=== PATIENT | male | born 1945 | race Caucasian/White ===

== ENCOUNTER 2024-04-05 13:22 | Inpatient (IN) | payer OTHER, SELFPAY ==
[2024-04-05] VITALS (19 sets, daily range): BP systolic 113–170; BP diastolic 59–115
[2024-04-05 10:12] LABS: % Basophils 0.6 % (0-2); % Eosinophils 2.2 % (0-6); % Immature Granulocytes 0.3 % (0-0.5); % Lymphocytes 13.7 % (20.5-51.1); % Monocytes 8.1 % (1.7-9.3); % Neutrophils 75.1 % (42.2-75.2); Absolute Basophils 0.1 10^3/uL (0-0.2); Absolute Eosinophils 0.2 10^3/uL (0-0.7); Absolute Lymphocytes 1.3 10^3/uL (1.2-3.4); Absolute Monocytes 0.8 10^3/uL (0.1-0.6); Absolute Neutrophils 7.1 10^3/uL (1.4-6.5); Hemoglobin 13.8 g/dL (13.0-18.0); Mean Corp Hgb Conc. 33.7 g/dL (33.0-37.0); Mean Corpuscular Hgb 31.3 pg (27.0-31.0); Mean Platelet Volume 10.4 fL (7.4-10.4); Nucleated Red Blood Cells % 0 % (-); Platelet Count 249 10^3/uL (130-400); Red Blood Cell Count 4.41 10^6/uL (4.70-6.10); Red Cell Dist. Width 12.3 % (11.5-14.5); White Blood Cell Count 9.5 10^3/uL (4.8-10.8)
[2024-04-05 10:22] LABS: ALT (SGPT) 14 U/L (0-50); AST (SGOT) 26 U/L (17-59); Albumin 4.3 g/dl (3.5-5.0); Alkaline Phosphatase 61 U/L (38-126); Blood Urea Nitrogen 40 mg/dl (9-20); Calcium 9.7 mg/dl (8.4-10.2); Carbon Dioxide 25 mmol/L (22-30); Chloride 104 mmol/L (98-107); Glucose 107 mg/dl (70-99); Magnesium 1.7 mg/dl (1.6-2.3); Potassium 4.3 mmol/L (3.5-5.1); Sodium 140 mmol/L (135-145); Total Protein 7.3 g/dl (6.3-8.2); eGFR 50.81
[2024-04-05 10:36] LABS: Troponin I 0.112 ng/ml
[2024-04-05 10:53] LABS: TSH 1.08 uIU/ml (0.47-4.68)
[2024-04-05] MEDS: ASPIRIN 325 MG PO (10:56)
--- NOTE | 2024-04-05 10:59 | ED.GENMED ---
History of Present Illness
General
Chief Complaint: Chest Pain
Source: patient and spouse
Exam Limitations: none
Time Seen by Provider: 04/05/24 09:48
Nursing documentation reviewed up to this point in time: agreed with
History of Present Illness
History of Present Illness:
79-year-old male past medical history of hypertension hyperlipidemia presenting to the emergency department today with concerns of chest pain 2 days ago when lifting some objects at home has since resolved lasted for a few hours at the time had some
mild shortness of breath at this time no symptoms at this point.
Past History
Past History
ED Past Medical History: HTN and Hypercholesterolemia
ED Past Surgical History: None
Social History
Tobacco: Non-smoker
Alcohol: Occasional
Personal:
Living: with family
Employment: Employed
Review of Systems
Review of Systems
Allergies reviewed?: Yes
All Other Systems: ROS reviewed and negative except as documented in HPI and ROS
Phy Exam
Physical Exam
Physical Exam:
GENERAL: Alert , in no apparent distress
EYE: pupils equal and reactive
NECK: Supple, no significant adenopathy.
ENT: o/p clr, mmm.
CARDIAC: Regular rate and rhythm .
LUNGS: Clear breath sounds bilaterally, no acute respiratory distress, no wheezes/rales/rhonchi
ABDOMEN: Soft, without focal tenderness, no r/g, no cvat
NEUROLOGICAL: Alert and oriented, no focal neuro deficits
SKIN: Warm and dry, skin intact.
MUSCULOSKELETAL: No edema, well perfused.
PSYCH: Normal and appropriate interaction.
Scores
Heart Score for Chest Pain Patients
STEMI patient?: No
History: Moderately Suspicious
ECG: Nonspecific Repolarization
Age: >/= 65 years
Risk Factors: 1 or 2 Risk Factors
Troponin: >/= 3 x Normal Limit
Heart Score for Chest Pain Patients: 7
Heart Score Risk: 72.7 % MACE over next 6 weeks
Course
Orders/Labs/Results
Orders:
Orders
04/05/24 09:33
ECG [Electrocardiogram (*1)] Urgent
Reason for Study: Chest Pain
EKG- Treatment ONCE
04/05/24 09:55
CR Chest - 2 Views Urgent
Comment:
Reason For Exam: cp
04/05/24 09:59
Complete Blood Count/With Diff Urgent
Comprehensive Metabolic Panel Urgent
Magnesium Urgent
TSH Urgent
Troponin I Urgent
04/05/24 10:39
EKG [Electrocardiogram (*1)] Urgent
Reason for Study: Chest Pain
EKG- Treatment ONCE
04/05/24 10:53
Aspirin 325 mg PO NOW STA
04/05/24 10:59
PT/INR [Prothrombin Time] Urgent
PTT Urgent
04/05/24 11:32
Echo 2D MMode Color/Doppler Urgent
Reason for Study: NSTEMI
04/05/24 11:53
Add On- LAB Routine
Tests Added?: lipid panel and hgbA1c
04/05/24 12:[address] See Dose Instructions PO NOW STA
Discontinue all Active Warfarin orders?: Not Applicable
04/05/24 12:34
Heparin Protocol- PTT Orders As Directed
PTT per Heparin protocol: -Obtain CBC and baseline PTT - if not already collected.
-Obtain PTT 6 hours from start of infusion. Then, every 6 hours until 2 consecutive
PTT's are therapeutic. Then, PTT Daily.
-With each rate change, obtain PTT every 6 hours until 2 consecutive PTT's are
therapeutic. Then, PTT Daily.
Notify MD As Directed
Notify physician if: PTT is greater than or equal to 200.
04/05/24 12:45
Heparin 83264 Units/250 ml 25,000 units in 250 ml IV PER PROTOCOL
Weight to be used for heparin protocol in kilograms (kg):: 59.2
Protocol:: Cardiac Tx/Acute Coronary
PTT Goal Range to be used:: PTT 73 to 111 seconds
Order type:: Initial
INITIAL Infusion Dose (UNITS/KG/hr) & then follow protocol:: 12 units/kg/hr
Infusion Dose in UNITS/hr & then follow protocol (UNITS/hr):: 700
INFUSION RATE in mL/hr & then follow protocol (mL/hr):: 7
PTT less than or equal to 64 seconds:: Increase rate by 200 units/hr (+ 2 mL/hr)
PTT 64.1 to 72.9 seconds:: Increase rate by 100 units/hr (+ 1 mL/hr)
PTT 73 to 111 seconds:: Target Range. No change in rate.
PTT 111.1 to 130.9 seconds:: Decrease rate by 100 units/hr (- 1 mL/hr)
PTT 131 to 199.9 seconds:: HOLD for 1 hr. Then decrease rate by 200 units/hr (- 2 mL/hr)
PTT greater than or equal to 200 seconds:: HOLD for 2 hrs & Notify Provider. Then decrease by 200 units/hr (-
2 mL/hr)
Lab follow-up:: Each change, PTT q6h until 2 consecutive are therapeutic. Then PTT
daily.
04/05/24 12:46
Troponin I Urgent
04/05/24 13:[address] See Dose Instructions IV DIRECTED
04/05/24 14:00
Troponin I Urgent
04/07/24 06:00
Complete Blood Count/No Diff Q2D
Comment: Notify MD if platelet count is <130,000 or decreases by 50% from baseline
04/09/24 06:00
Complete Blood Count/No Diff Q2D
Comment: Notify MD if platelet count is <130,000 or decreases by 50% from baseline
04/11/24 06:00
Complete Blood Count/No Diff Q2D
Comment: Notify MD if platelet count is <130,000 or decreases by 50% from baseline
04/13/24 06:00
Complete Blood Count/No Diff Q2D
Comment: Notify MD if platelet count is <130,000 or decreases by 50% from baseline
04/15/24 06:00
Complete Blood Count/No Diff Q2D
Comment: Notify MD if platelet count is <130,000 or decreases by 50% from baseline
04/17/24 06:00
Complete Blood Count/No Diff Q2D
Comment: Notify MD if platelet count is <130,000 or decreases by 50% from baseline
04/19/24 06:00
Complete Blood Count/No Diff Q2D
Comment: Notify MD if platelet count is <130,000 or decreases by 50% from baseline
04/21/24 06:00
Complete Blood Count/No Diff Q2D
Comment: Notify MD if platelet count is <130,000 or decreases by 50% from baseline
Abnormal Lab Results
04/05/24
09:59
RBC 4.41 L 10^6/uL
(4.70-6.10)
MCH 31.3 H pg
(27.0-31.0)
Absolute Neuts (auto) 7.1 H 10^3/uL
(1.4-6.5)
Absolute Monos (auto) 0.8 H 10^3/uL
(0.1-0.6)
Lymphocytes % 13.7 L %
(20.5-51.1)
BUN 40 H mg/dl
(9-20)
Creatinine 1.4 H mg/dL
(0.7-1.3)
Glucose 107 H mg/dl
(70-99)
Total Bilirubin 2.0 H mg/dl
(0.2-1.3)
Troponin I 0.112 H* ng/ml
04/05/24 09:59
04/05/24 09:59
Vital Signs
Initial and Last Documented VS:
Initial Vital Signs
Temp Pulse Resp BP Pulse Ox
98.0 F 36 16 164/81 98
04/05/24 09:41 04/05/24 09:41 04/05/24 09:41 04/05/24 09:41 04/05/24 09:41
Last Documented Vital Signs
Temp Pulse Resp BP Pulse Ox
98.0 F 62 16 123/59 98
04/05/24 09:41 04/05/24 12:00 04/05/24 12:00 04/05/24 12:00 04/05/24 12:00
MDM/Problems Addressed
MDM/Problems Addressed:
79-year-old male presenting to the emergency department today with concerns of chest pain a few days ago has since resolved spoke with his primary care doctor told him to come to the ER for assessment. Upon arrival blood pressure slightly elevated
otherwise initial pulse rate 36 but rechecked in the 60s. Initial EKG showed frequent PVCs and occasional consecutive PVCs no more than 2 in a row. Labs showing elevated creatinine and BUN level but no old levels for comparison troponin level
elevated at 0.112. Patient was given an aspirin cardiology was notified. Echo was ordered patient will be taken for cath admitted in stable condition
*Critical Care Note
Total Time (30-74mins, 75-104mins- exclusive of procedures): Not Applicable
ED Attending Note
-
Portions of this chart may have been created with voice recognition software.� Occasional wrong word or��sound alike� substitutions may have occurred due to the inherent limitations of voice recognition software.
Discharge Plan
Departure
Patient Disposition: Admit
Date of Disposition: 04/05/24
Time of Disposition: 12:58
Admit to: Telemetry
Admit to doctor: Reannay
Presentation/result/management discussed w/ accepting MD/DO: Hospitalist
Patient with high blood pressure during this ER visit?: No
Condition: Good
Covid-19: Not Applicable
Discharge Problem:
Elevated troponin, Frequent PVCs, Chest pain
Prescriptions:
No Action
lisinopril 10 mg Tablet
10 mg PO DAILY
simvastatin [Zocor] 20 mg Tablet
20 mg PO DAILY
ibuprofen [Advil] 200 mg Tablet
200 mg PO BIDPRN PRN (Reason: mild pain)
hydrochlorothiazide 25 mg Tablet
25 mg PO DAILY
atenolol 50 mg Tablet
50 mg PO DAILY
Referrals:
Chris Clifton CRNP [Family Provider] -
Interventions
Interventions:
*Risk Screen - Suicide Last Done: 04/05/24 09:41
*General Assessment Last Done: 04/05/24 09:52
*Neglect/Abuse Screening Last Done: 04/05/24 09:41
ED- Fall Risk Assessment Last Done: 04/05/24 09:53
*ED COVID-19 Vaccine History Last Done: 04/05/24 09:52
ED- Cardiac Assessment Last Done: 04/05/24 09:53
Discharge Date and Time
Print Language: VIETNAMESE
[2024-04-05 11:21] LABS: APTT 26.7 Sec (23.4-35.0); INR 1.04; PT 13.9 Sec (11.4-14.6)
--- NOTE | 2024-04-05 11:27 | CON.CAR ---
Addendum entered and electronically signed by Austen St MD 04/05/24 14:56:
Attending addendum: Patient seen and examined. PA note reviewed and findings independently confirmed by me. 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
standpoint for many years. He has a history of hypertension, hyperlipidemia and CKD Stage 3a. He presented to [facility] for evaluation of new onset chest discomfort and troponin was noted to be elevated. He is now referred for coronary
angiography.
PE:
GEN: AAO x 3.��No acute distress
HEENT:��NC/AT, sclera are anicteric
NECK: Supple.��Normal JVP
LUNGS: Clear in anterior and lateral lung osborn.��No wheezing
CV: Regular rate and rhythm.��Normal S1/S2.��No S3, No S4.��Murmur: None
ABD : Soft, NT, ND, No HSM.��Bowel sounds are present.
EXT: No CCE
NEURO: No focal neurologic deficits��
RECOMMENDATIONS:
-Discussed risk and benefit of coronary angiography and explained procedure to patient
-Further management decisions will be made based on angiographic finding
-High intensisty statin therapy
-Aspirin +/- Brilinta or Plavix
Original Note:
Consultation
Consultation Request
Date/Time Consultation Performed: 04/05/24
Requesting Provider: Dr. Wick
Performing Provider: Ingris Blue PA-C for Dr. St
Reason for Consultation: CP
Medical History
-
Chief Complaint: CP
History of Present Illness:
Patient is a 79-year-old male with past medical history of hypertension, hyperlipidemia, impaired fasting glucose, stage IIIa kidney disease, ulcerative rectosigmoiditis who presented to [facility] with intermittent chest discomfort over
the last several days. He reports the pain feels as a pressure in the center of his chest which waxes and wanes. He reports no clear correlation with exertion, eating, stating the pain is random. He reports approximately 6 episodes over the last
3 days. He reports the pain is up to his neck at times. He denies associated nausea or vomiting or lightheadedness. He reports he initially noted pain after lifting a large trash bag filled with paper. 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
[place]. Currently pain-free. Given aspirin in ER. Initial troponin 0.112.
PMH:
Hypertension
Hyperlipidemia
Impaired fasting glucose
Stage IIIa kidney disease
Ulcerative rectosigmoiditis
Glaucoma status post laser treatment
Family history of CAD
Past Medical History
Past Medical History: Other (in HPI)
Social History
Tobacco: Non-Smoker
Alcohol: Other (rare)
Personal:
Living: With Family
Employment: Employed
Family History
Family History: CAD
Allergies / Home Medications
Allergy/AdvReac Type Severity Reaction Status Date / Time
No Known Allergies Allergy Verified 04/05/24 09:43
�Medication �Instructions �Recorded �Confirmed �Type
atenolol 50 mg tablet 50 mg PO DAILY 04/05/24 04/05/24 History
hydrochlorothiazide 25 mg tablet 25 mg PO DAILY 04/05/24 04/05/24 History
ibuprofen 200 mg tablet (Advil) 200 mg PO BIDPRN PRN mild pain 04/05/24 04/05/24 History
lisinopril 10 mg tablet 10 mg PO DAILY 04/05/24 04/05/24 History
simvastatin 20 mg tablet (Zocor) 20 mg PO DAILY 04/05/24 04/05/24 History
Review of Systems
-
History Source: Patient and Family
All other systems: Negative unless noted
Physical Exam
Vital Signs
Temp Pulse Resp BP Pulse Ox
98.0 F 67 16 164/81 98
04/05/24 09:41 04/05/24 09:51 04/05/24 09:53 04/05/24 09:41 04/05/24 09:41
Lab Results
04/05/24 09:59
04/05/24 09:59
Troponin I 0.112 ng/ml H* 04/05/24 09:59
Physical Exam
General: No Apparent Distress and Comfortable
HEENT: Normocephalic, Anicteric and Moist Mucous Membranes
Respiratory: Clear and Non Labored Respirations
Cardiac: S1/S2 and Regular Rhythm (with ectopy)
GI: Soft, Non Tender, Non Distended and Normal Bowel Sounds
Musculoskeletal: No Clubbing, No Cyanosis and No Edema
Skin: Warm and Dry
Neuro: AO x 3
Impression / Plan
-
Primary Dried Fruit Washer: none
PCP: Dr. Weaver
Assessment:
Presentation with chest pain
Suspected NSTEMI, initial trop 0.112
Frequent PVCs/couplets
Hypertension
Hyperlipidemia
Impaired fasting glucose
Stage IIIa kidney disease
Ulcerative rectosigmoiditis
Glaucoma status post laser treatment
Family history of CAD
ECHO 04/2015: EF 50%, mild MR, mild to moderate eccentric AR, mild TR, PAP 20 to 25 mmHg
ECHO 04/05/24: pending
Plan:
-Patient presents with chest pain, waxing and waning over the last several days
-Initial troponin 0.112. Trend to peak
-EKG sinus rhythm with frequent PVCs/couplets and possible anterior ischemia
-Chest x-ray negative for acute cardiopulmonary abnormality
-Presently chest pain-free
-Aspirin given in the ER
-Check echo
-Check CVE, hemoglobin A1c
-Last ate around 3 AM. N.p.o. for cardiac catheterization today. Procedure discussed with patient and at bedside and they are agreeable to proceed
-On regimen of atenolol 50 mg p.o. daily, HCTZ 25 mg daily, lisinopril 10 mg daily, Zocor 20 mg daily as outpatient
-Creatinine stable at baseline of 1.4 upon review of records
-Further recommendations based on results of echo and cardiac catheterization
Data Reviewed
-
EKG: Tracing Personally Visualized and interpreted
Radiology: Report Reviewed by me
Medical Tests (Nuc Med, Echo etc): Report Reviewed by me
Labs: Labs Reviewed by me
Old Records: Reviewed
--- NOTE | 2024-04-05 12:48 | HPS.HSE ---
Family Physician
-
Family Physician: JOHNNIE Bryant
Chief Complaint
-
mid chest pressure
History of Present Illness
79-year-old male with past medical history of hypertension, hyperlipidemia, impaired fasting glucose, stage IIIa kidney disease, ulcerative rectosigmoiditis who presented to [facility] with intermittent mid sternum chest pressure for past
one weeks. He reports the pain feels as a pressure in the center of his chest which waxes and wanes. patient stated it is non exertional, non radiating pain. denied sob. denied SAL, dizzy or syncopal episode. denied abdominal pain,n,v,d. denied
dysuria or hematuria.
patient was initiated on heparin drip and gave a dose of asa in ER.
Medical History
Past Medical History
Past Medical History: Reports Other
Additional Past Medical History:
colon polyps
htn
stage 3 CKD
dyslipidemia
HTN
Past Surgical History: Reports Other
Additional Past Surgical History:
tonsillectomy
Social History
Tobacco: Non-smoker
Alcohol: Occasional
Drug: None
Personal:
Living: With Family
Family History
Family History: Not pertinent
Allergies / Home Medications
Allergies reflects when Allergies were last updated in [employer].
Home Medications with original date entered in [employer]
Allergy/Medication List:
Allergies
Allergy/AdvReac Type Severity Reaction Status Date / Time
No Known Allergies Allergy Verified 04/05/24 09:43
Home Medications
atenolol 50 mg tablet 50 mg PO DAILY 04/05/24
hydrochlorothiazide 25 mg tablet 25 mg PO DAILY 04/05/24
ibuprofen 200 mg tablet (Advil) 200 mg PO BIDPRN PRN mild pain 04/05/24
lisinopril 10 mg tablet 10 mg PO DAILY 04/05/24
simvastatin 20 mg tablet (Zocor) 20 mg PO DAILY 04/05/24
Review of Systems
-
Constitutional: Reports No Symptoms
EENT: Reports No Symptoms
Respiratory: Reports No Symptoms
Cardiac: Reports Chest Pain
Abdomen/GI: Reports No Symptoms
: Reports No Symptoms
Musculoskeletal: Reports No Symptoms
Skin: Reports No Symptoms
Neurological: Reports No Symptoms
Endocrine: Reports No Symptoms
Hematologic/Lymphatic: Reports No Symptoms
Psych: Reports No Symptoms
Physical Exam
Vital Signs
Vital Signs
Temp Pulse Resp BP Pulse Ox
98.0 F 62 16 123/59 98
04/05/24 09:41 04/05/24 12:00 04/05/24 12:00 04/05/24 12:00 04/05/24 12:00
Physical Exam
General: Well Developed, Well Nourished and No Apparent Distress
HEENT: NormoCephalic, Moist mucous membranes and Atraumatic
Respiratory: Clear
Cardiac: S1/S2 and Regular Rhythm; No Murmur or Rub
GI: Soft, Non Tender, Non Distended and Normal Bowel Sounds; No Organomegaly
Rectal: Deferred by Provider
Musculoskeletal: No Clubbing, No Cyanosis and No Edema
Skin: No Rash
Neuro: AO x 3 and Nonfocal/grossly intact
Psych: Calm
Laboratory Results
-
04/05/24 09:59
04/05/24 09:59
Laboratory Results
PT 13.9 Sec (11.4-14.6) 04/05/24 10:59
INR 1.04 04/05/24 10:59
APTT 26.7 Sec (23.4-35.0) 04/05/24 10:59
Total Bilirubin 2.0 mg/dl (0.2-1.3) H 04/05/24 09:59
AST 26 U/L (17-59) 04/05/24 09:59
ALT 14 U/L (0-50) 04/05/24 09:59
Alkaline Phosphatase 61 U/L (38-126) 04/05/24 09:59
Troponin I 0.112 ng/ml H* 04/05/24 09:59
Data Reviewed
-
Diagnostic Radiology: Report Reviewed by me
Lab Data: Labs Reviewed by me
Impression/Plan
-
#chest pain r/o NSTEMI
-Trop 0.112
-asa continued
-heparin continued
-ECHO
-for possible cath today
-cardiology consulted
-chest x ray negative for acute cardiopulmonary abnormality
-EKG with Sinus Rhythm, ST and T wave abnormality
#CKD stage 3a
-cr 1.4
-ctm
#essential htn
-atenolol,hctz,lisinopril continued with hold parameter
#HLD
-zocor continued
#DVT prophylaxis
-heparin
#CODE status
-full code
--- NOTE | 2024-04-05 13:08 | W.PN.UPDATE ---
Update Note
Progress Note Update
This note serves as an addendum to the H&P by identity management consultant LAURIE Dorothy MCLEOD
HPI
79M HX hypertension, hyperlipidemia, impaired fasting glucose, CKD3 e, ulcerative rectosigmoiditis seen at ER:
- intermittent chest discomfort
- pain feels as a pressure in the center of his chest which waxes and wanes.
- no clear correlation with exertion, eating, stating the pain is random.
- somewhat 6 episodes over the last 3 days.
- occasionally the pain is radiated up to his neck at times.
- reports he initially noted pain after lifting a large trash bag filled with paper.
Currently pain-free. Given aspirin in ER. Initial troponin 0.112.
ROS: denies associated nausea or vomiting or lightheadedness.
PHX; see above
Reviewed VS: stable
PE
Gen: NAD, not toxic, looks younger than his age
HEENT: anicteric
Neck: supple, no significant JVD
Lungs: symmetric AE, no additional BS
Cor: RRR S1 S2
Abdomen: soft benign exam
RADIO TELEVISION ANNOUNCER: AAO3, NFND
MS: no edema
Psych: nl mood and affect
Laboratory Tests
04/05/24 04/05/24 04/05/24
09:59 10:59 12:46
WBC 9.5
Hgb 13.8
Plt Count 249
INR 1.04
BUN 40 H
Creatinine 1.4 H
Glucose 107 H
Total Bilirubin 2.0 H
Troponin I 0.112 H* Pending
TSH 1.08
04/05/24
14:00
WBC
Hgb
Plt Count
INR
BUN
Creatinine
Glucose
Total Bilirubin
Troponin I Pending
TSH
CXR: No radiographic evidence of acute cardiopulmonary abnormality.
Serial EKG reports: 04/05/24
@1039:
SINUS RHYTHM WITH FREQUENT PREMATURE VENTRICULAR COMPLEXES
MINIMAL VOLTAGE CRITERIA FOR LVH, MAY BE NORMAL VARIANT ( Sokolow-Lazar )
ANTERIOR INFARCT , AGE UNDETERMINED
ST and T WAVE ABNORMALITY, CONSIDER LATERAL ISCHEMIA
ABNORMAL ECG
WHEN COMPARED WITH ECG OF 05-APR-2024 09:39,
ANTERIOR INFARCT IS NOW PRESENT
Confirmed by TAN BATES MD ([id number]) on 04/05/2024 11:06:59 AM
@0933
SINUS RHYTHM WITH FREQUENT , AND CONSECUTIVE PREMATURE VENTRICULAR COMPLEXES
IN A PATTERN OF BIGEMINY
MINIMAL VOLTAGE CRITERIA FOR LVH, MAY BE NORMAL VARIANT ( Sokolow-Lazar )
ST and T WAVE ABNORMALITY, CONSIDER ANTERIOR ISCHEMIA
ABNORMAL ECG
NO PREVIOUS ECGS AVAILABLE
Confirmed by TAN BATES MD ([id number]) on 04/05/2024 9:51:42 AM
Apr 2015 ECHO: EF 50%, mild MR, mild to moderate eccentric AR, mild TR, PAP 20 to 25 mmHg
04/05/24 ECHO pending
No prior hospitalist admission:
ASSESSMENT & PLAN
Pending Rx reconciliation
Intermittent CP - currently pain free
Elevated first TPNI with serial EKG becomes abn for Anterior ischemia
Last ate around 3 AM.
DDX: ACS, NSTEMI, less likley NMITE
- Initial troponin 0.112: Trend to peak
- Aspirin given in the ER
- Heparin gtt now
- f/u TTE for WMAL
- f/u lipds and and A1c
- NPO for cardiac catheterization today
- GRADUATE INTERN atenolol 50 mg p.o. daily, HCTZ 25 mg daily, lisinopril 10 mg daily, Zocor 20 mg daily as outpatient
- DCA card consulted
CKD3 and stable Creatinine at baseline of 1.4
- IVF NS 250 cc prior to cath
- trend Cr
DVT Px: heaprin gtt
Full code
IP TLM
[2024-04-05] MEDS: HEPARIN 25000 UNITS/250 ML IV (13:22)
[2024-04-05 13:28] LABS: HDL Cholesterol 77 mg/dl; LDL Cholesterol, Calculated 87 mg/dl; Total Cholesterol 175 mg/dl (50-199); Triglyceride 55 mg/dl (10-149); Very Low Density Lipoprotein 11 mg/dl (0-30)
[2024-04-05 14:17] LABS: Glycohemoglobin (HgbA1c) 5.3 % (4.0-5.6)
[2024-04-05 15:36] LABS: ACT-LR - POC 253 Seconds (116-155)
[2024-04-05 15:56] LABS: ACT-LR - POC 277 Seconds (116-155)
--- NOTE | 2024-04-05 15:59 | ITS.CL.CATH ---
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
Cardiac Catheterization
Procedure Report:
LEFT HEART CATH AND CORONARY INTERVENTION
Date of Procedure: April 05, 2024
Referring: Dr. Austen St
PROCEDURES:
1. Left heart catheterization with coronary and single-plane left ventriculography
2. Successful stenting of the mid LAD with a 3.0 x 22 mm [place] stent that was implanted at nominal pressures and postdilated to high pressures with a 3.0 mm noncompliant balloon
INDICATION: This is an 79-year-old gentleman who presented to [facility] following the development of substernal chest pressure that waxed and waned in nature. He thought that he pulled a muscle while working. He continues to work
part-time at [employer]. He arrived at the emergency chest pain-free and his initial troponin returned at 0.112 ng/mL. He is now referred for coronary angiography.
ACCESS: Right radial artery, 6 Egyptian sheath
HEMODYNAMICS (mmHg):
AO (s/d, m) : 145/69, 95
LV (s/d) : 126/14
LVEDP : 24
CORONARY FINDINGS
Dominance: Right
LEFT MAIN: Normal
LEFT ANTERIOR DESCENDING: The LAD arises normally from the left main and runs in the anterior interventricular groove. There is a large first diagonal branch arising from the mid LAD and has a 50% ostial stenosis but normal flow. The mid LAD
beyond the diagonal branch has a hazy 85 percent stenosis. The LAD has diffuse luminal irregularities but no other focal obstructive disease.
CIRCUMFLEX: The circumflex is a moderate caliber nondominant vessel giving rise to a small OM1 and a larger OM 2 which has a 40% stenosis in its midportion.
RIGHT CORONARY: The right coronary artery is a dominant vessel with minor irregularities over its course.
VENTRICULOGRAPHY: Left ventriculography was performed in an CHANG projection. The digital single-plane left ventricular ejection fraction is visually estimated at 50%
ANGIOPLASTY PROCEDURE DETAIL: Upon review of the diagnostic catheterization films the decision was made to proceed with percutaneous revascularization of the ulcerated high-grade stenosis in the mid LAD. A 180 mg loading dose of ticagrelor was
administered and intravenous heparin was given. The ACT was monitored throughout the procedure. The origin of the left main was cannulated with a 6 Egyptian EBU 3.5 guiding catheter and a BMW guidewire was advanced to the apical LAD. Primary
stenting was performed with placement of a 3.0 x 26 mm [place] stent. The stent was implanted at nominal pressures then postdilated to high pressures with a 3 mm noncompliant balloon with an excellent angiographic result
RADIATION SUMMARY: Fluoro Time (min): 7.5, Dose (mGy): 433, DAP (Gy.cm2) : 27.6
CONCLUSIONS
1. Successful stenting of the mid LAD with a 3.0 x 26 mm [place] stent that was implanted at nominal pressures and postdilated with a 3.0 mm noncompliant balloon
2. Preserved LV systolic function
RECOMMENDATIONS
1. Continue to follow serial troponin levels
2. Uninterrupted dual antiplatelet therapy for 12 months
3. Will check cost of ticagrelor
4. High intensity lipid-lowering
Copy to: Dr. Austen St
[2024-04-05] MEDS: NSS 1000 IV (16:20)
[2024-04-05 16:29] LABS: Troponin I 0.128 ng/ml
--- NOTE | 2024-04-05 16:55 | CM ---
Addendum entered by Julia Gannon 04/05/24 17:02:
Telephone call to [facility] to check if they have Brilinta 90 mg po bid in stock. [facility] states they have it in stock.
Original Note:
Reviewed chart. Met with and Mrs. Garcia to review discharge plans. He states prior to admission he resides with his spouse in an apartment with two steps to enter. He states prior to admission he was independent with ambulation and adls. He
states he does not have any DME in the home. He states he has a prescription plan and uses [facility]. Telephone call to his insurance to check on co-pay for Brilinta 90 mg po bid. His co-pay would be $47.00 a month or $94.00 for ninety days via
mail order. Reviewed co-pays with them. They are agreeable to the co-pay via mail order. Reviewed one month free coupon. Placed the one month free coupon in his red discharge folder. Medical work-up in progress. The discharge plan is to return
home with his spouse when medically stable.
[2024-04-05] MEDS: LIPITOR 40 MG PO (17:36)
--- NOTE | 2024-04-05 19:43 | PTCARENOTE ---
Pt admitted via ED post cardiac cath done via right radial artery, radial band in place. Pt c/o of 2/10 chest discomfort/ache. Telemetry shows sinus rhythm with very frequent PVC's, pairs , up to 4beats NSVT. Pt voiding without problem, family
visiting with him.
[2024-04-05] MEDS: TYLENOL 650 MG PO (22:06)
[2024-04-05 22:53] LABS: Troponin I 0.423 ng/ml
--- NOTE | 2024-04-06 01:39 | PTCARENOTE ---
Pt. in NSR on the monitor with frequent PVC's. Right radial cath site dressing CDI with no bleeding or hematoma, radial pulse palpable. Tylenol given for radial site tenderness. Pt. asleep.
[2024-04-06 04:14] VITALS: BP 124/75
[2024-04-06 05:19] LABS: Blood Urea Nitrogen 31 mg/dl (9-20); Calcium 9.2 mg/dl (8.4-10.2); Carbon Dioxide 22 mmol/L (22-30); Chloride 105 mmol/L (98-107); Estimated Creatinine Clearance 39 ml/min; Glucose 99 mg/dl (70-99); Potassium 4.5 mmol/L (3.5-5.1); Sodium 139 mmol/L (135-145); eGFR > 60.00
[2024-04-06 07:18] VITALS: BP 128/85
--- NOTE | 2024-04-06 07:23 | W.PN.CARDCBS ---
Addendum entered and electronically signed by Hope Westbrook PA-C 04/06/24 12:19:
Troponin trending up a bit, was 1.02 this morning and then up to 1.15 this afternoon. Will check another Troponin at 1400 and if stable or lower then patient can be d/c'd to home.
Addendum entered and electronically signed by Temo López MD 04/06/24 09:39:
Patient seen, interviewed and examined by me.
Well-appearing, no acute distress
Regular rate and rhythm with normal S1 and S2, no S3 no S4. There is a grade 1/6 apical holosystolic murmur and no rubs. PMI is normally placed.
Lungs are clear to auscultation bilaterally without wheezes rales or rhonchi.
Abdomen soft nontender nondistended with normoactive bowel sounds
Extremities show trace pretibial edema bilaterally no clubbing or cyanosis.
Neurologic exam is grossly nonfocal.
Presenting with NSTEMI with Troponin up to 1.02 on 04/06/24 with preserved LVEF and LAD disease treated with SANTO. No Further CP, no SOB
Cont aspirin and Brilinta.
Outpatient dose of simvastatin 20 mg daily changed to atorvastatin 40 mg daily
Outpatient dose of atenolol changed to Toprol XL 25 mg daily
Maintain outpatient dose of lisinopril 10 mg daily
Awaiting AM troponin, likely DC home today
Original Note:
Today's Communication / Plan
-
Check last Troponin and d/c if trending down
Impression / Plan
-
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
PCP: Dr. Weaver
Assessment:
Presentation with chest pain
Suspected NSTEMI, Troponin 1.02 and trending
CAD s/p 3.0 mm Phong SANTO to mid LAD 04/05/24
Frequent PVCs/couplets
Hypertension
Hyperlipidemia
Impaired fasting glucose
Stage IIIa kidney disease
Ulcerative rectosigmoiditis
Glaucoma status post laser treatment
Family history of CAD
Moderate MR by echo 04/05/24
ECHO 04/2015: EF 50%, mild MR, mild to moderate eccentric AR, mild TR, PAP 20 to 25 mmHg
ECHO 04/05/24: EF 50%, no regional wall motion abnormality, moderate MR, mild aortic insufficiency, mild TR with PAP 34 mmHg
Plan:
-Patient being managed as a NSTEMI with Troponin up to 1.02 on 04/06/24, will trend to peak.
-EF preserved by echo at 50%.
-Patient is s/p LAD stent, new to aspirin and Brilinta. Appreciate help of CM on checking cost of Brilinta, $94 for 3 month mail away. Patient will fill 30 day free Rx for Brilinta locally and then using mail away for 90 days, the 90 day Rx was sent
by me via eCW on 04/06/24.
-LDL 87. Outpatient dose of simvastatin 20 mg daily changed to atorvastatin 40 mg daily
-HgbA1c 5.3%
-Outpatient dose of atenolol changed to Toprol XL 25 mg daily
-Outpatient dose of lisinopril 10 mg daily continued
-Outpatient dose of HCTZ stopped
-D/C to home 04/06/24 pending peak Troponin
Progress Note - Logging Equipment Mechanic
Subjective
Date of Service: April 06, 2024
Feels well and would like to go home this morning
Objective
Labs:
04/05/24 09:59
04/06/24 04:24
Labs
Hgb 13.8 g/dL (13.0-18.0) 04/05/24 09:59
Hct 41.0 % (39.0-52.0) 04/05/24 09:59
Plt Count 249 10^3/uL (130-400) 04/05/24 09:59
PT 13.9 Sec (11.4-14.6) 04/05/24 10:59
INR 1.04 04/05/24 10:59
APTT 26.7 Sec (23.4-35.0) 04/05/24 10:59
Sodium 139 mmol/L (135-145) 04/06/24 04:24
Potassium 4.5 mmol/L (3.5-5.1) 04/06/24 04:24
BUN 31 mg/dl (9-20) H 04/06/24 04:24
Creatinine 1.2 mg/dL (0.7-1.3) 04/06/24 04:24
Glucose 99 mg/dl (70-99) 04/06/24 04:24
Troponins
04/05/24 04/05/24 04/05/24
09:59 12:46 15:55
Troponin I 0.112 H* Cancelled 0.128 H*
04/05/24 04/06/24 04/06/24
22:21 04:24 12:00
Troponin I 0.423 H* D 1.020 H* D Cancelled
Vital Signs and I&O:
Vital Signs
Temp Pulse Resp BP Pulse Ox
97.6 F 63 18 124/75 100
04/06/24 04:18 04/06/24 04:14 04/06/24 04:18 04/06/24 04:14 04/06/24 04:18
Vital Signs
Temp Pulse Resp BP Pulse Ox
97.6 F 63 18 124/75 100
04/06/24 04:18 04/06/24 04:14 04/06/24 04:18 04/06/24 04:14 04/06/24 04:18
Intake & Output
04/04/24 04/05/24 04/06/24 04/07/24
06:59 06:59 06:59 06:59
Intake Total 1165 / 1165
Output Total 1250 / 1250
Balance -85 / -85
Physical Exam
Physical Exam
GEN: AAOx3
HEENT: mmm
LUNGS: No audible wheeze
CV: SR with PVCs and couplets on tele
ABD: ND
EXT: No edema B/L. Right radial without hematoma or ecchymosis
NEURO: Gross non-focal
SKIN: No rash
[2024-04-06] MEDS: ZESTRIL 10 MG PO (08:38)
[2024-04-06] MEDS: TOPROL XL 25 MG PO (08:38)
[2024-04-06] MEDS: BRILINTA 90 MG PO (08:38)
[2024-04-06] MEDS: LOW STRENGTH ASPIRIN 81 MG PO (08:38)
[2024-04-06 08:45] VITALS: BMI 22.8
[2024-04-06 11:31] VITALS: BP 139/75
--- NOTE | 2024-04-06 13:41 | PTCARENOTE ---
received patient this am, monitor shows NSR with freq. PVC's, VSS. troponin went up 1.150, voices no complaints of CP, SOB, dizziness, Hope Eaton PA aware, ordered troponin for 1400.
--- NOTE | 2024-04-06 14:07 | W.PN.HOSP.TC ---
Today's Communication/Plan
-
awaiting repeat trop
Assessment / Plan
Assessment / Plan
Assessment:
Presentation with chest pain
Suspected NSTEMI, Troponin 1.02
CAD s/p 3.0 mm Rhine SANTO to mid LAD 04/05/24
Frequent PVCs/couplets
Essential Hypertension
Hyperlipidemia
Impaired fasting glucose
Stage IIIa kidney disease
Ulcerative rectosigmoiditis
Glaucoma status post laser treatment
Family history of CAD
Moderate MR by echo 04/05/24
Plan
- if trop downtrends or is stable
- dc on ASA/Brilinta/Statin/Toprol XL/Lisinopril and OP Cards f/u
Anticipated Discharge: Within 24 hours
Subjective/Interval History
-
Date of Service: April 06, 2024
no complaints
Objective Data
-
Labs:
Laboratory Results
04/06/24
04:24
Sodium 139
Potassium 4.5
Chloride 105
Carbon Dioxide 22
BUN 31 H
Creatinine 1.2
Glucose 99
Calcium 9.2
Vital Signs:
Vital Signs
Temp Pulse Resp BP Pulse Ox
98 F 67 18 128/85 99
04/06/24 12:02 04/06/24 08:38 04/06/24 12:02 04/06/24 08:38 04/06/24 12:02
I&O
04/05/24 04/06/24 04/07/24
06:59 06:59 06:59
Intake Total 1165 / 1165
Output Total 1250 / 1250
Balance -85 / -85
Physical Exam
-
General: No Apparent Distress
HEENT: Normocephalic and Atraumatic
Respiratory: Clear to Auscultation; Negative Wheezes
Cardiac: Irregular Rhythm (SR with PVCs)
GI: Soft and Nontender
Genito-urinary: No Costovertebral Tender
Neuro: AO x 3
Psych: Calm
Data Reviewed
-
Total Time Spent with Patient (in minutes): 41
Labs: Labs Reviewed by me
--- NOTE | 2024-04-06 14:59 | W.DS.TRANS ---
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
-
Discharge Instructions:
Discharge Diagnosis/Procedures Angioplasty with stent to LAD
Diet Low Cholesterol
Activity As tolerated
Driving Restrictions No driving for 24 hours
Other Services Cardiac Rehab
Instructions:
Stand-Alone Forms: DC Instructions- Cath/EP Lab
Changes to Home Medications: Yes
Discharge Medications:
DC Medications w/original date entered in [employer]
ibuprofen 200 mg tablet (Advil) 200 mg PO BIDPRN PRN mild pain 04/05/24
lisinopril 10 mg tablet 10 mg PO DAILY Blood Pressure 04/05/24
aspirin 81 mg chewable tablet 81 mg PO DAILY Heart disease/condition #30 tabs 04/06/24
atorvastatin 40 mg tablet 40 mg PO QPM High cholesterol #30 tabs 04/06/24
metoprolol succinate 25 mg tablet,extended release 24 hr 25 mg PO DAILY Heart disease/condition #30 tabs 04/06/24
ticagrelor 90 mg tablet (Brilinta) 90 mg PO BID Heart disease/condition #60 tabs 04/06/24
Home Medication Changes
Stop simvastatin you will be on Atorvastatin
Stop atenolol you will be on metoprolol
Stop Hydrochlorothiazide
Pending Results: No
Total time spent discharging patient (in min): 41
[2024-04-06 15:16] VITALS: BP 125/80
[2024-04-06] MEDS: FLUAD (65 yr+) 2024-2025 FORMULA 0.5 ML IM (15:33)
--- NOTE | 2024-04-06 16:11 | PTCARENOTE ---
D/C instructions given to patient and family, all verbalizes understanding. INT D/C'd, telemetry D/C'd, personal belongings packed and sent home with patient. patient received his flu vaccine as ordered. D//C to home via wc accompanied by staff.
[2024-04-08 07:47] LABS: ACT-LR - POC > 397 Seconds (116-155)
== END 2024-04-06 16:15 | disposition home or self-care (01) | DRG 322 ==
LOC: IVU 13:22
PROVIDERS: Physician Assistant; Physician Assistant Medical; Registered Nurse; ADMITTING PHYSICIAN Internal Medicine; ATTENDING PHYSICIAN Internal Medicine; CONSULT PHYSICIAN Internal Medicine Interventional Cardiology; EMERGENCY PHYSICIAN Student in an Organized Health Care Education/Training Program; FAMILY PHYSICIAN Registered Nurse
PROC: 4A023N7 Measurement of Cardiac Sampling and Pressure, Left Heart, Percutaneous Approach (ICD-10-PCS; 2024-04-05)
PROC: B2151ZZ Fluoroscopy of Left Heart using Low Osmolar Contrast (ICD-10-PCS; 2024-04-05)
PROC: 027034Z Dilation of Coronary Artery, One Artery with Drug-eluting Intraluminal Device, Percutaneous Approach (ICD-10-PCS; 2024-04-05)
PROC: B2111ZZ Fluoroscopy of Multiple Coronary Arteries using Low Osmolar Contrast (ICD-10-PCS; 2024-04-05)
DX: I21.4 Non-ST elevation (NSTEMI) myocardial infarction (principal); I25.10 Atherosclerotic heart disease of native coronary artery without angina pectoris; I12.9 Hypertensive chronic kidney disease with stage 1 through stage 4 chronic kidney disease, or unspecified chronic kidney disease; N18.31 Chronic kidney disease, stage 3a
CPT/HCPCS: 71046; 80048; 80053; 80061; 83036; 83735; 84443; 84484; 85025; 85347; 85610; 85730; 90662; 93005; 93306; 93458; 96374; 99285; C1725; C1769; C1874; C1894; C9600; G0008; Q9967

== ENCOUNTER 2024-05-27 15:40 | Outpatient (RCR) | payer OTHER, SELFPAY | END 2024-05-27 23:59 | disposition home or self-care (01) | LOC: CRHB 15:40 | PROVIDERS: ATTENDING PHYSICIAN Internal Medicine Interventional Cardiology | DX: Z95.5 Presence of coronary angioplasty implant and graft (principal); I25.10 Atherosclerotic heart disease of native coronary artery without angina pectoris (principal) | CPT/HCPCS: G0422; G0423 ==

== ENCOUNTER 2024-06-28 14:56 | Outpatient (RCR) | payer OTHER, SELFPAY | END 2024-06-28 23:59 | disposition home or self-care (01) | LOC: CRHB 14:56 | PROVIDERS: ATTENDING PHYSICIAN Internal Medicine Interventional Cardiology | DX: Z95.5 Presence of coronary angioplasty implant and graft (principal); I25.10 Atherosclerotic heart disease of native coronary artery without angina pectoris (principal) | CPT/HCPCS: G0422; G0423 ==

== ENCOUNTER 2024-07-26 13:39 | Outpatient (RCR) | payer OTHER, SELFPAY | END 2024-07-26 23:59 | disposition home or self-care (01) | LOC: CRHB 13:39 | PROVIDERS: ATTENDING PHYSICIAN Internal Medicine Interventional Cardiology | DX: Z95.5 Presence of coronary angioplasty implant and graft (principal); I25.10 Atherosclerotic heart disease of native coronary artery without angina pectoris | CPT/HCPCS: G0422; G0423 ==

== ENCOUNTER 2024-07-31 13:42 | Outpatient (RCR) | payer OTHER, SELFPAY | END 2024-08-16 17:14 | disposition home or self-care (01) | LOC: CRHB 13:42 | PROVIDERS: ATTENDING PHYSICIAN Internal Medicine Interventional Cardiology | DX: Z95.5 Presence of coronary angioplasty implant and graft (principal) | CPT/HCPCS: G0422 ==

== ENCOUNTER → 2024-08-30 12:34 | Outpatient (REF) | payer OTHER, SELFPAY | LOC: RCS 12:34 | PROVIDERS: ATTENDING PHYSICIAN Internal Medicine Interventional Cardiology; FAMILY PHYSICIAN Registered Nurse | DX: I10 Essential (primary) hypertension (principal); I25.10 Atherosclerotic heart disease of native coronary artery without angina pectoris; I49.3 Ventricular premature depolarization; I21.4 Non-ST elevation (NSTEMI) myocardial infarction; I47.29 Other ventricular tachycardia | CPT/HCPCS: 93306 ==